=== PATIENT | male | born 1960 | race Caucasian/White ===

== ENCOUNTER 2017-09-02 00:10 | Inpatient (IN) | payer OTHER ==
[2017-09-02] MEDS ORDERED: Lidocaine Viscous Sol 2% 15 ml UD Cup ONE (00:38)
[2017-09-02] MEDS ORDERED: Mag-Al 1200 mg/1200 mg/30 ML UDCUP ONE (00:38)
[2017-09-02 01:23] LABS: Anisocytosis SLIGHT = 6-15 cells (100X) (0-5/hpf); Band 21 % (5-11); Elliptocytes SLIGHT = 2-5 cells (100X) (0-1/hpf); Hemoglobin 8.5 g/dL (14.0-18.0); Lymphocytes 9 % (21-51); MDiff Complete? YES; Mean Corpuscular HGB CONC 29.2 g/dL (32.0-36.0); Mean Corpuscular Hemoglobin 19.5 pg (27.0-31.0); Mean Platelet Volume 9.1 fL (7.4-10.4); Microcytosis SLIGHT = 6-15 cells (100X) (0-5/hpf); Monocytes 6 % (0-10); Neutrophil 64 % (42-75); PLT Morphology Comment Appears Adequate; Platelet Count 551 thou/uL (130-400); RBC Distribution Width 17.4 % (11.5-14.5); Red Blood Cell (RBC) Count 4.33 mill/uL (4.70-6.10); White Blood Cell (WBC) Count 13.8 thou/uL (4.8-10.8)
[2017-09-02 01:26] LABS: ALT (SGPT) 28 U/L (8-55); AST (SGOT) 34 U/L (5-34); Albumin 3.3 g/dL (3.5-5.0); Alkaline Phosphatase 68 U/L (40-150); Anion Gap 12 mmol/L (10-20); BUN (Urea Nitrogen) 12 mg/dL (8.4-25.7); Bilirubin, Total 0.9 mg/dL (0.2-1.2); Calc. Creatinine Clearance 0 mL/min (70-130); Carbon Dioxide 26 mmol/L (22-29); Chloride 101 mmol/L (98-107); Estimated GFR-MDRD Greater than 90; Globulin 3.7 g/dL (2.4-3.5); Glucose 115 mg/dL (70-105); Lipase 12 U/L (8-78); Sodium 135 mmol/L (136-145)
[2017-09-02] MEDS ORDERED: Piperacillin/Tazobactam 4.5 GM VIAL ONE (03:42)
[2017-09-02] MEDS ORDERED: Ondansetron ODT 8 MG TAB ONE (03:57)
[2017-09-02] MEDS ORDERED: Sucralfate 1 GM/10 ML UDCUP ONE (03:57)
[2017-09-02] MEDS ORDERED: Piperacillin/Tazobactam 4.5 GM in Sodium Chloride 0.9% 100 ML IVPB SCH (04:00)
[2017-09-02] MEDS: Dextrose 5 % And 0.9 % NaCl 1,000 ML IV SCH ×2 (05:30→15:23)
[2017-09-02] MEDS ORDERED: Ondansetron HCl/PF 4 MG/2 ML Vial IVP PRN ×2 (05:56→15:41)
[2017-09-02] MEDS ORDERED: Ondansetron ODT 4 MG TAB SL PRN (05:56)
[2017-09-02 06:11] VITALS: BMI 26.4
--- NOTE | 2017-09-02 08:08 | HP ---
CHIEF COMPLAINT: Abdominal pain and fever. HISTORY OF PRESENT ILLNESS: This is a 56-year-old male who has a 3 month history of constipation the y have been treating him with lactulose. He said yesterday he developed severe acute pain with fever to 103. No bloody or black stools. He has never had a colonoscopy. He says his mother had colon c ancer. He was vomiting yesterday. His last flatus and bowel movement yesterday. PAST MEDICAL HISTORY: Brain cancer, seizure disorder. PAST SURGICAL HISTORY: Brain surgery at [facility] 8 years ago. MEDICATIONS: He is on Keppra 1500 mg b.i.d. and Tylenol as well as the lactulose. ALLERGIES: No known drug allergies. SOCIAL HISTORY: He is incarcerated. He was a heavy smoker, but none for the last 8 years. FAMILY HISTORY: History of colon cancer. PHYSICAL EXAMINATION: VITAL SIGNS: Temperature 99.3, pulse 97, blood pressure 118/65. GENERAL: He is in chains. He is awake. HEENT: He has a scar on his scalp. LUNGS: Clear. HEART: Regular rate and rhythm. ABDOMEN: He has a tender mass in the right lower quadrant with peritonitis at that point. EXTREMITIES: Unremarkable. LABORATORY AND X-RAY FINDINGS: White count 13.8, H&H 8.5 and 29, platelet count 551. Electrolytes a re fine. CT scan shows a 7 cm solid inflammatory mass of the cecum with associated lymphadenopathy a nd free fluid along the liver, worrisome for neoplasm. ASSESSMENT: Possible perforated colon mass, possible cancer. PLAN: We will check a CEA. Recommend exploratory laparotomy and resection. CONSENT: I have discussed the planned procedure as well as risk of bleeding, infection, injury to ur eter or bowel, possible ostomy, possible leakage of staple lines, possible need for further treatment . He understands and gives informed consent.
--- NOTE | 2017-09-02 09:25 | CT ---
PRELIMINARY REPORT/[facility]/EMERGENCY AFTER HOURS PROCEDURE: Addendum created by Butch Grande MD on 09/02/2017 3:21 AM Central Time ([place] & [place]) CRITICAL RESULT: The study was discussed on the telephone with YELENA Stallings on 09/02/2017 3:20 AM CDT. The resu lts were understood and acknowledged. Initial Report created on 09/02/2017 3:14 AM Central Time ([place] & [place]) EXAM: CT Abdomen and Pelvis Without Intravenous Contrast CLINICAL HISTORY: 56 years old, male; Pain; Abdominal pain; Generalized; Patient HX: M56 presents to ed for abdominal p ain. Pt reports abdominal pain x3 months. Pt reports earlier today he went to medical and reports he tried to get something for pain or pepto bismol and reports they would not give him either. Pt report s after eating dinner he became nauseous and began vomiting. Pt reports increasing pain as well. Pt r eports constipation reporting his last bowel movement was yesterday. F[facility] 103.6 [facility]. TECHNIQUE: Axial computed tomography images of the abdomen and pelvis without intravenous contrast. Coronal reformatted images were created and reviewed. COMPARISON: No relevant prior studies available. FINDINGS: Lung bases: Unremarkable. No mass. No consolidation. ABDOMEN: Liver: Unremarkable. Gallbladder and bile ducts: Unremarkable. No calcified stones. No ductal dilation. Pancreas: Unremarkable. No ductal dilation. Spleen: Unremarkable. No splenomegaly. Adrenals: Unremarkable. No mass. Kidneys and ureters: Unremarkable. No obstructing stones. No hydronephrosis. Stomach and bowel: Very large masslike area within the cecum. There is extensive pericolonic inflammatory change. PELVIS: Appendix: No findings to suggest acute appendicitis. Bladder: Unremarkable. No stones. Reproductive: Unremarkable as visualized. ABDOMEN and PELVIS: Intraperitoneal space: Minimal perihepatic ascites. No free air. Bones/joints: No acute fracture. No dislocation. Soft tissues: Unremarkable. Vasculature: Unremarkable. No abdominal aortic aneurysm. Lymph nodes: Multiple large right lower quadrant mesenteric lymph nodes. IMPRESSION: Large inflammatory pseudomass involving the cecum with extensive pericolonic inflammatory change in r ight lower quadrant mesenteric lymph nodes. Differential diagnosis would include ruptured appendiciti s, cecal neoplasm with probable perforation Ileocecal tumor or less likely colitis. Repeat pelvic CT after the administration of IV and dilute rectal contrast should be considered. Thank you for allowing us to participate in the care of your patient. Dictated and Authenticated by: Butch Grande MD 09/02/2017 3:14 AM Central Time ([place] & [place]) FINAL REPORT EMERGENCY AFTER HOURS ABDOMEN AND PELVIS CT SCAN WITHOUT IV CONTRAST: 09/02/2017 2:02 a.m. FINDINGS: There is a large, approximately 7 cm in diameter, mass/pseudo mass in the region of the cecum with ex tensive surrounding pericolonic fat stranding and inflammatory changes with minimal adenopathy, as we ll as some free fluid around the liver and right colonic gutter and extending down into the pelvis. There is some dilatation of the small bowel distally. The possibilities include that of a large ceca l or ileocecal neoplastic mass with possible associated confined perforation, colitis, or cecitis. A ruptured appendix with a chronic inflammatory mass could also be possibilities. The findings were discussed with Dr. Aguirre at 7:45 a.m. This report is in agreement in preliminary report given by [facility]. CODE CR POS: [id number]
[2017-09-02] MEDS ORDERED: Piperacillin/Tazobactam 3.375 GM in Sodium Chloride 0.9% 100 ML IVPB SCH (11:00)
[2017-09-02] MEDS ORDERED: Acetaminophen 1,000 MG in Premix Bag 1 BAG IVPB SCH (11:15)
[2017-09-02] MEDS ORDERED: Fentanyl 250 MCG/5 ML VIAL ONE ×2 (13:08→14:24)
[2017-09-02] MEDS ORDERED: HYDROmorphone 0.5 MG/0.5 ML SYRINGE ONE (13:08)
[2017-09-02] MEDS ORDERED: Lidocaine 1% PF 5 ML VIAL ONE (13:27)
[2017-09-02] MEDS ORDERED: Succinylcholine Chloride 20 MG/ML 10 ml SYRINGE FS ONE (13:27)
[2017-09-02] MEDS ORDERED: Ondansetron HCl/PF 4 MG/2 ML Vial ONE (13:27)
[2017-09-02] MEDS ORDERED: PROPOFOL 200 MG/20 ML VIAL ONE (13:27)
[2017-09-02] MEDS ORDERED: Dexamethasone 20 MG/5 ML VIAL ONE (13:27)
[2017-09-02] MEDS ORDERED: Glycopyrrolate 0.2 MG/ML 5 ML SYRINGE ONE (13:27)
[2017-09-02] MEDS ORDERED: Midazolam HCl 2 mg/2 ml Vial ONE (13:31)
[2017-09-02] MEDS ORDERED: Albumin 5% 500 ML ONE (13:43)
[2017-09-02] MEDS ORDERED: hydrALAZINE 20 MG/ML VIAL SLOW IVP PRN (15:41)
[2017-09-02] MEDS ORDERED: Promethazine HCl 25 MG/ML VIAL IM PRN (15:41)
[2017-09-02] MEDS ORDERED: Fentanyl 100 MCG/2 ML VIAL ONE (16:02)
[2017-09-02] MEDS: D5 1/2 NS w/20 mEq KCL 1,000 ML IV SCH (17:12)
[2017-09-02] MEDS: Acetaminophen 1,000 MG in Premix Bag 1 BAG IVPB SCH ×2 (17:13→23:30)
[2017-09-02] MEDS: Ketorolac Tromethamine 30 MG/ML VIAL IVP SCH ×2 (17:14→23:29)
[2017-09-02] MEDS: Piperacillin/Tazobactam 3.375 GM in Sodium Chloride 0.9% 100 ML IVPB SCH ×2 (18:17→23:31)
--- NOTE | 2017-09-02 20:10 | OP ---
DATE OF PROCEDURE: 09/02/2017 PREOPERATIVE DIAGNOSIS: Perforated cecal mass. SURGEON: Yg Aguirre M.D. PROCEDURE PERFORMED: Exploratory laparotomy, right hemicolectomy, diverting loop ileostomy. INDICATIONS: This is a 56-year-old inmate who has a several month history of progressive constipatio n with the acute onset of severe abdominal pain yesterday associated with nausea, vomiting. CT scan showing a large mass in the cecum at 7 cm with free fluid in the abdomen. FINDINGS: A 7 cm irregular mass of the cecum, highly suspicious for neoplasm, diffuse peritonitis wi th an abscess in the right lower quadrant. DESCRIPTION OF PROCEDURE: After informed consent was obtained, the patient was taken to the operatin g room and given general endotracheal anesthesia. He was placed in the supine position. His abdomen was prepped and draped in usual fashion. A midline incision was performed. Subcu divided sharply. The fascia incised with a 10 blade. The peritoneum opened and contained purulent peritoneal fluid. This was sent for culture and Gram stain. Approximately 800 mL of cloudy peritoneal fluid/purulent fluid was removed from the abdominal cavity. The right colon was mobilized. The peritoneum was very thickened along the white line of Toldt. The cecum was mobilized. The terminal ileum was isolated and blunt dissection was performed through the mesentery beneath the ileum. Ileum was divided utiliz ing a RADAMES. Then, the colon was further mobilized and then divided with the RADAMES just distal to the he patic flexure. Then, the mesentery was divided utilizing the LigaSure. Ileocolic and vessels were l igated with 2-0 Vicryl stick ties. Specimen was sent to pathology for further analysis. A side-to-s clayton functional properistaltic anastomosis was performed. The ileum was placed parallel to the transv erse colon. Enterotomies were performed. The RADAMES-75 was inserted one limb in each limb of bowel and fired. Then, the enterotomy was closed utilizing a contour stapler. The abdomen was thoroughly irr igated with saline. Because of the peritonitis, he elected not to go ahead and protect the anastomos is with a loop ileostomy. The skin was grasped with a Evangelist clamp and a circular incision was perfo rmed. The fat was excised down to the fascia. The fascia was incised in a cruciate manner. The ile um was brought through this opening and secured posterior with interrupted 2-0 Vicryl sutures. The h emostasis assured. The fascia closed with a running looped #1 PDS. The subcu was thoroughly irrigat ed with saline and closed with skin christina loosely. Sterile bandage applied. The ileum was further secured to the fascia with interrupted 3-0 Vicryls and the ileostomy matured with interrupted 3-0 Vi cryl sutures. A wafer and bag were applied. Hemostasis was assured. The patient tolerated the proc edure well and was transferred to recovery. Prior to closure, a drain was placed in the right gutter and brought out through a separate stab wound, a 19-Danish round drain. Patient tolerated the proce dure well and was transferred to recovery in good condition.
[2017-09-02] MEDS: levETIRAcetam In NaCl (Iso-Os) 1,500 MG in Premix Bag 1 BAG IVPB SCH (20:56)
[2017-09-02] MEDS: Famotidine 20 MG TAB PO SCH (20:56)
[2017-09-02] MEDS: Famotidine/PF 20 mg/2ml Vial SLOW IVP SCH (20:56)
[2017-09-03] MEDS: D5 1/2 NS w/20 mEq KCL 1,000 ML IV SCH ×4 (00:15→21:38)
[2017-09-03 05:04] LABS: Anion Gap 9 mmol/L (10-20); BUN (Urea Nitrogen) 13 mg/dL (8.4-25.7); Calc. Creatinine Clearance 133 mL/min (70-130); Calcium 8.2 mg/dL (7.8-10.44); Carbon Dioxide 24 mmol/L (22-29); Chloride 109 mmol/L (98-107); Estimated GFR-MDRD Greater than 90; Glucose 162 mg/dL (70-105); Potassium 4.4 mmol/L (3.5-5.1); Sodium 138 mmol/L (136-145)
[2017-09-03 05:16] LABS: Band 28 % (5-11); Hemoglobin 8.7 g/dL (14.0-18.0); Lymphocytes 3 % (21-51); MDiff Complete? YES; Mean Corpuscular HGB CONC 29.5 g/dL (32.0-36.0); Mean Corpuscular Hemoglobin 21.4 pg (27.0-31.0); Mean Corpuscular Volume 72.5 fL (78.0-98.0); Mean Platelet Volume 8.1 fL (7.4-10.4); Metamyelocyte 1 % (0-0); Monocytes 2 % (0-10); Neutrophil 66 % (42-75); PLT Morphology Comment Appears Increased; Platelet Count 504 thou/uL (130-400); RBC Distribution Width 19.7 % (11.5-14.5); Red Blood Cell (RBC) Count 4.06 mill/uL (4.70-6.10); White Blood Cell (WBC) Count 17.5 thou/uL (4.8-10.8)
[2017-09-03] MEDS: Ketorolac Tromethamine 30 MG/ML VIAL IVP SCH ×4 (06:08→23:26)
[2017-09-03] MEDS: Acetaminophen 1,000 MG in Premix Bag 1 BAG IVPB SCH ×2 (06:08→12:52)
[2017-09-03] MEDS: Piperacillin/Tazobactam 3.375 GM in Sodium Chloride 0.9% 100 ML IVPB SCH ×2 (06:09→12:53)
[2017-09-03] MEDS: Enoxaparin Sodium 40 MG/0.4 ML SYRINGE SC SCH (08:36)
[2017-09-03] MEDS: levETIRAcetam In NaCl (Iso-Os) 1,500 MG in Premix Bag 1 BAG IVPB SCH ×2 (08:38→21:31)
[2017-09-03] MEDS: Famotidine/PF 20 mg/2ml Vial SLOW IVP SCH ×2 (08:39→21:31)
[2017-09-03] MEDS: Famotidine 20 MG TAB PO SCH ×2 (08:46→21:33)
[2017-09-03] MEDS: Piperacillin/Tazobactam 3.375 GM, IV Admixture Fee-Chemo 1 UNITS in Sodium Chloride 0.9... IVPB SCH ×2 (18:27→23:27)
[2017-09-04 05:19] LABS: Band 16 % (5-11); Hypochromia SLIGHT = 6-15 cells (100X) (0-5/hpf); Lymphocytes 4 % (21-51); MDiff Complete? YES; Mean Corpuscular Hemoglobin 21.7 pg (27.0-31.0); Mean Corpuscular Volume 72.3 fL (78.0-98.0); Monocytes 1 % (0-10); Neutrophil 79 % (42-75); PLT Morphology Comment Appears Increased; Platelet Count 555 thou/uL (130-400); RBC Distribution Width 19.7 % (11.5-14.5); White Blood Cell (WBC) Count 20.4 thou/uL (4.8-10.8)
[2017-09-04] MEDS: Ketorolac Tromethamine 30 MG/ML VIAL IVP SCH ×4 (06:05→23:31)
[2017-09-04] MEDS: Piperacillin/Tazobactam 3.375 GM, IV Admixture Fee-Chemo 1 UNITS in Sodium Chloride 0.9... IVPB SCH ×4 (06:06→23:31)
[2017-09-04] MEDS: Famotidine/PF 20 mg/2ml Vial SLOW IVP SCH ×2 (08:57→20:25)
[2017-09-04] MEDS: Famotidine 20 MG TAB PO SCH ×2 (08:57→20:24)
[2017-09-04] MEDS: Enoxaparin Sodium 40 MG/0.4 ML SYRINGE SC SCH (08:58)
[2017-09-04] MEDS: levETIRAcetam In NaCl (Iso-Os) 1,500 MG in Premix Bag 1 BAG IVPB SCH ×2 (09:00→20:24)
[2017-09-04] MEDS: D5 1/2 NS w/20 mEq KCL 1,000 ML IV SCH ×2 (09:02→18:24)
[2017-09-04] MEDS: HYDROcodone/Acetaminophen 10/325 mg Tablet PO PRN ×2 (12:10→20:25)
--- NOTE | 2017-09-04 12:45 | PQF ---
DATE: 09-04-17 ATTN: DR. SUHA EDWARDS Please exercise your independent, professional judgment in responding to the clarification form. Clinical indicators are provided on the bottom of this form for your review Please check appropriate box(es): [ ] Sepsis due to: (Peritonitis, etc.) [ ] SIRS due to non-infectious process (please specify etiology) [ ] Localized infection without sepsis [ ] Other diagnosis [ ] Unable to determine In addition, please specify: Present on Admission (POA): [ ] Yes [ ] No [ ] Unable to determine For continuity of documentation, please document condition throughout progress notes and discharge summary. Thank You. CLINICAL INDICATORS - SIGNS / SYMPTOMS / LABS: OPERATIVE NOTE 09-02-17: DIFFUSE PERITONITIS WITH AN ABSCESS IN THE RIGHT LOWER QUADRANT WBC: 09-02-17: 13.8 09-03-17: 17.5 09-04-17: 20.4 BANDS: 09-02-17: 21 09-03-17: 28 09-04-17 16 TEMP: 09-02-17: 99.3, 101.1, 101.1, 101.8 PULSE: ER: 101, 98, 97, 95, 98 09-02-17: 97, 100, 100, 102 HYPERGLYCEMIA IN ABSENCE OF DM: 09-02-17: 115, 162 RISK FACTORS: ER DX: CECAL MASS, ABD PAIN, FEVER H&P: BRAIN CANCER, SEIZURE DISORDER OPERATIVE NOTE 09-02-17: DIFFUSE PERITONITIS WITH AN ABSCESS IN THE RIGHT LOWER QUADRANT, EXPLORATORY LAPAROTOMY, RIGHT HEMICOLECTOMY, DIVERTING LOOP ILEOSTOMY TREATMENTS: MAR: ZOSYN IV, IVF DAILY CBC (This form is maintained as a part of the permanent medical record) 2014 [employer]. All Rights Reserved [email or web address] Office: [phone] VAL
[2017-09-05 05:42] LABS: Hemoglobin 9.3 g/dL (14.0-18.0); Mean Corpuscular HGB CONC 28.5 g/dL (32.0-36.0); Mean Corpuscular Hemoglobin 20.9 pg (27.0-31.0); Mean Corpuscular Volume 73.3 fL (78.0-98.0); Mean Platelet Volume 7.9 fL (7.4-10.4); Platelet Count 677 thou/uL (130-400); RBC Distribution Width 20.9 % (11.5-14.5); Red Blood Cell (RBC) Count 4.45 mill/uL (4.70-6.10)
[2017-09-05] MEDS: Ketorolac Tromethamine 30 MG/ML VIAL IVP SCH ×3 (05:44→18:45)
[2017-09-05] MEDS: Piperacillin/Tazobactam 3.375 GM, IV Admixture Fee-Chemo 1 UNITS in Sodium Chloride 0.9... IVPB SCH ×4 (05:44→23:15)
[2017-09-05] MEDS: HYDROcodone/Acetaminophen 10/325 mg Tablet PO PRN ×3 (06:09→18:45)
[2017-09-05 06:18] LABS: Band 10 % (5-11); Lymphocytes 16 % (21-51); MDiff Complete? YES; Monocytes 2 % (0-10); Neutrophil 72 % (42-75); PLT Morphology Comment Appears Increased
[2017-09-05] MEDS: levETIRAcetam In NaCl (Iso-Os) 1,500 MG in Premix Bag 1 BAG IVPB SCH ×2 (09:00→20:26)
[2017-09-05] MEDS: Famotidine 20 MG TAB PO SCH ×2 (09:00→20:25)
[2017-09-05] MEDS: Famotidine/PF 20 mg/2ml Vial SLOW IVP SCH (09:03)
[2017-09-05] MEDS: Enoxaparin Sodium 40 MG/0.4 ML SYRINGE SC SCH (09:12)
[2017-09-06] MEDS: Piperacillin/Tazobactam 3.375 GM, IV Admixture Fee-Chemo 1 UNITS in Sodium Chloride 0.9... IVPB SCH ×4 (05:36→23:20)
[2017-09-06] MEDS: HYDROcodone/Acetaminophen 10/325 mg Tablet PO PRN ×3 (06:00→20:04)
[2017-09-06] MEDS: Famotidine 20 MG TAB PO SCH ×2 (08:30→20:02)
[2017-09-06] MEDS: levETIRAcetam In NaCl (Iso-Os) 1,500 MG in Premix Bag 1 BAG IVPB SCH ×2 (11:22→20:02)
[2017-09-06] MEDS: Enoxaparin Sodium 40 MG/0.4 ML SYRINGE SC SCH (11:23)
[2017-09-07] MEDS: HYDROcodone/Acetaminophen 10/325 mg Tablet PO PRN ×3 (02:34→15:27)
[2017-09-07] MEDS: Piperacillin/Tazobactam 3.375 GM, IV Admixture Fee-Chemo 1 UNITS in Sodium Chloride 0.9... IVPB SCH ×3 (05:23→17:32)
[2017-09-07] MEDS: Famotidine 20 MG TAB PO SCH (09:11)
[2017-09-07] MEDS: levETIRAcetam In NaCl (Iso-Os) 1,500 MG in Premix Bag 1 BAG IVPB SCH (09:12)
[2017-09-07] MEDS: Enoxaparin Sodium 40 MG/0.4 ML SYRINGE SC SCH ×2 (09:19→10:41)
--- NOTE | 2017-09-07 14:06 | PQF ---
DATE: 09-04-17 ATTN: DR. SUHA EDWARDS Please exercise your independent, professional judgment in responding to the clarification form. Clinical indicators are provided on the bottom of this form for your review Please check appropriate box(es): [x ] Sepsis due to: (Peritonitis, etc.) __Peritonitis due to perforated colon cancer [ ] SIRS due to non-infectious process (please specify etiology) [ ] Localized infection without sepsis [ ] Other diagnosis [ ] Unable to determine In addition, please specify: Present on Admission (POA): [ x ] Yes [ ] No [ ] Unable to determine For continuity of documentation, please document condition throughout progress notes and discharge summary. Thank You. CLINICAL INDICATORS - SIGNS / SYMPTOMS / LABS: OPERATIVE NOTE 09-02-17: DIFFUSE PERITONITIS WITH AN ABSCESS IN THE RIGHT LOWER QUADRANT WBC: 09-02-17: 13.8 09-03-17: 17.5 09-04-17: 20.4 BANDS: 09-02-17: 21 09-03-17: 28 09-04-17 16 TEMP: 09-02-17: 99.3, 101.1, 101.1, 101.8 PULSE: ER: 101, 98, 97, 95, 98 09-02-17: 97, 100, 100, 102 HYPERGLYCEMIA IN ABSENCE OF DM: 09-02-17: 115, 162 RISK FACTORS: ER DX: CECAL MASS, ABD PAIN, FEVER OPERATIVE NOTE 09-02-17: DIFFUSE PERITONITIS WITH AN ABSCESS IN THE RIGHT LOWER QUADRANT, EXPLORATORY LAPAROTOMY , RIGHT HEMICOLECTOMY, DIVERTING LOOP ILEOSTOMY TREATMENTS: MAR: ZOSYN IV, IVF DAILY CBC (This form is maintained as a part of the permanent medical record) 2014 [employer]. All Rights Reserved [email or web address] [email or web address] Office: [phone] VAL
[2017-09-07 16:59] VITALS: BP 127/76; TEMP 98.6
--- NOTE | 2017-09-07 21:19 | CON ---
DATE OF CONSULTATION: 09/07/2017 REASON FOR CONSULTATION: Colon cancer. HISTORY OF PRESENT ILLNESS: Mr. Streeter is a 56-year-old male who presented to the emergency room with a 3-month history of constipation. He began to have acute abdominal pain with nausea and vomiting. He had a fever of 103. A CT scan showed a cecal mass. Dr. Aguirre was consulted and perfor med a right hemicolectomy with a diverting ileostomy. The tumor size was 9.2 cm. It was positive fo r well-differentiated adenocarcinoma. There were histological features suggestive of microsatellite instability. 0 of 21 lymph nodes were negative for metastatic carcinoma. The patient is a stage IIA . He is recovering nicely. He is taking p.o. His output in his ileostomy is adequate. No issues w ith pain. The patient does have a history of what sounds like a primary brain tumor. In 2007, he chappell d tumor resection, underwent radiation. He was on oral chemotherapy, which I believe to be Temodar. He tolerated it poorly and did not complete the chemotherapy course, but did complete radiation. He has had no followup since that time. PAST MEDICAL HISTORY: Brain tumor, status post resection and radiation. PAST SURGICAL HISTORY: Tumor resection, [facility], 8 years ago. HOME MEDICATIONS: Keppra 1500 mg b.i.d., Tylenol p.r.n. ALLERGIES: No known drug allergies. FAMILY HISTORY: Colon cancer. SOCIAL HISTORY: Incarcerated with [facility]. Quit smoking approximately 8 years ago. No alcohol or illic it drug use. REVIEW OF SYSTEMS: Twelve-point review of systems is negative except for noted in HPI. PHYSICAL EXAMINATION: VITAL SIGNS: Temperature is 98.1, pulse 76, respiratory rate 18, BP is 123/79. He is 97% on room ai r. GENERAL: Well-developed, well-nourished male in no acute distress. HEENT: Normocephalic, atraumatic. Pupils equal and reactive to light. NECK: Supple. CARDIOVASCULAR: Regular rate and rhythm. LUNGS: Clear. ABDOMEN: Soft. He has ileostomy in the right lower quadrant. Midline incision is well approximated . Bowel sounds are positive. EXTREMITIES: No clubbing, cyanosis, or edema. SKIN: No rash. HEMATOLOGIC: No petechia or purpura. NEUROLOGIC: Nonfocal. PSYCHIATRIC: The patient is alert, oriented, and appropriate. PERTINENT LABORATORY AND X-RAYS: Current WBCs are 15, hemoglobin 9.3, hematocrit 32.6, platelet coun t 677,000, 72% neutrophils, 10% bands, 16% lymphocytes. Sodium is 138, potassium 4.4, chloride 109, CO2 is 24, BUN is 13, creatinine 0.71, lactic acid is 1.5, calcium 8.2, total bilirubin is 0.9, AST i s 34, ALT is 28, alkaline phosphatase is 68, serum total protein is 7, albumin 3.3, globulin 3.7, lip ase is 12. CEA is 3.18. Radiology, per HPI. ASSESSMENT: Stage IIA adenocarcinoma of the colon, status post resection with diverting ileostomy. DISCUSSION: The patient will need a followup with oncologist. He needs followup for his stage IIA colon cancer. He has no high-risk features except for microsatellite instability. Likely obser vation is warranted rather than chemotherapy, but he will need close observation at least over the ne xt year. He needs a full colonoscopy at some point as he has never had one. He also needs followup for his brain tumor. He has not had imaging for several years. This can be done with a [facility] in the o utpatient setting, make further recommendations.
== END 2017-09-07 19:00 | DRG 853 ==
LOC: EEVIPCON 00:10 → ERS 00:10 → SURG B 03:00
PROVIDERS: ADMIT Surgery; ATTEND Surgery
PROC: 0DTF0ZZ Resection of Right Large Intestine, Open Approach (ICD-10-PCS; principal; 2017-09-02)
PROC: 0D1B0Z4 Bypass Ileum to Cutaneous, Open Approach (ICD-10-PCS; 2017-09-02)
PROC: 30233N1 Transfusion of Nonautologous Red Blood Cells into Peripheral Vein, Percutaneous Approach (ICD-10-PCS; 2017-09-02)
DX: A41.9 Sepsis, unspecified organism (principal); K65.1 Peritoneal abscess; C18.0 Malignant neoplasm of cecum; G40.909 Epilepsy, unspecified, not intractable, without status epilepticus; Z79.899 Other long term (current) drug therapy; F17.210 Nicotine dependence, cigarettes, uncomplicated
CPT/HCPCS: 36415; 36430; 74176; 80048; 80053; 82378; 83605; 83690; 85025; 86850; 86900; 86901; 87070; 87076; 87205; 88309; 96361; 96365; A4216; G8978-GP-CJ; G8979-GP-CJ; G8980-GP-CJ; J0131; J1100; J1170; J1650; J1885; J1953; J2001; J2250; J2270; J2405; J2543; J2704; J3010; J7050; P9016; P9045; Q0162; S0028